=== PATIENT | female | born 1980 | race Caucasian/White ===

== ENCOUNTER 2022-07-05 15:31 | Emergency (ER) | payer BC ==
[~2022-07-05] VITALS: Ht 160 cm; Wt 57.2 kg
[2022-07-05 15:38] VITALS: BP_SYST 118
--- NOTE | 2022-07-05 15:42 | NUR ---
Patient triaged and placed in waiting room. VSS and patient appears in no acute distress at this time. Accompanied by self, awaiting available bed, and MD notified of need for MSE.
[2022-07-05 16:31] LABS: BILIRUBIN,URINE NEGATIVE (NEGATIVE); BLOOD, URINE NEGATIVE (NEGATIVE); CLARITY/URINE CLEAR (CLEAR); COLOR,URINE YELLOW (YELLOW); GLUCOSE,URINE NEGATIVE (NEGATIVE); KETONES,URINE 3+ (NEGATIVE); LEUKOCYTE ESTERASE ,URINE NEGATIVE (NEGATIVE); NITRITE, URINE NEGATIVE (NEGATIVE); PH,URINE 5.5 (5.0-8.0); PROTEIN URINE NEGATIVE (NEGATIVE); UROBILINOGEN,URINE 0.2 (0.2-1.0)
[2022-07-05 16:45] LABS: BACTERIA,URINE FEW /HPF (None Seen); RBC,URINE 0-3 /HPF (0-3); WBC,URINE 0-3 /HPF (0-3)
--- NOTE | 2022-07-05 19:35 | NUR ---
Patient placed in ER Hallway 1 for evaluation. Bed in lowest position with siderails up. Instructed to notify ED staff for any changes in condition or worsening of symptoms. Patient verbalized understanding.
[2022-07-05] MEDS ORDERED: ONDANSETRON 4 MG ODT TAB PO ONE (20:00)
[2022-07-05] MEDS ORDERED: KETOROLAC TROMETHAMINE 60 MG/2 ML VIAL IM ONE (20:00)
--- NOTE | 2022-07-05 20:33 | NUR ---
Dr. Jolly at bedside examining the patient.
--- NOTE | 2022-07-05 21:08 | NUR ---
Patient taken to ultrasound.
[2022-07-05] MEDS ORDERED: ONDA-8 TL (22:41)
[2022-07-05] MEDS ORDERED: DICL75TA5 PO (22:41)
[2022-07-05 22:52] VITALS: BP_SYST 110
--- NOTE | 2022-07-05 22:53 | NUR ---
Patient given written and verbal discharge instructions and verbalizes understanding. ER MD discussed with patient the results and treatment provided. Patient in stable condition. ID arm band removed. Rx of DICLOFENAC SODIUM AND ONDANSETRON given. Patient educated on pain management and to follow up with PMD. Pain Scale 0/10. Opportunity for questions provided and answered. Medication side effect fact sheet provided.
== END 2022-07-05 22:52 | disposition home or self-care (01) ==
LOC: SED 15:31
DX: R10.2 Pelvic and perineal pain (principal); D25.9 Leiomyoma of uterus, unspecified; R11.0 Nausea; Z79.899 Other long term (current) drug therapy
CPT/HCPCS: 99285; 74176; 76830; 76857; 81000; 76376; 81025; 96372; Q0162; J1885